=== PATIENT | female | born 1980 | race Caucasian/White ===

== ENCOUNTER → 2018-01-25 | Outpatient (CLI) | payer OTHER | LOC: M LRY 11:36 | DX: S99.911A Unspecified injury of right ankle, initial encounter (principal); S79.921A Unspecified injury of right thigh, initial encounter; S89.91XA Unspecified injury of right lower leg, initial encounter; X58.XXXA Exposure to other specified factors, initial encounter; Y92.89 Other specified places as the place of occurrence of the external cause; Y93.9 Activity, unspecified; Y99.9 Unspecified external cause status | CPT/HCPCS: 73502; G0463 ==

== ENCOUNTER → 2018-03-16 | Outpatient (CLI) | payer OTHER ==
[~2018-03-16] MED LIST: CONRAY-43 43% 50ML VIAL (Q9960) As Ordered
== END ==
LOC: M RADPRO 08:35
DX: M25.712 Osteophyte, left shoulder (principal); M25.512 Pain in left shoulder
CPT/HCPCS: 23350

== ENCOUNTER 2018-08-13 23:20 | Emergency (ER) | payer OTHER ==
[~2018-08-13] VITALS: Ht 162.6 cm; Wt 87.0 kg
[2018-08-13] MEDS ORDERED: GABA-843 PO (23:39)
[2018-08-13] MEDS ORDERED: MELO15TA28 (23:39)
[2018-08-13] MEDS ORDERED: ESCI20TA (23:39)
[2018-08-13] MEDS ORDERED: MAXA10TA15 (23:39)
[2018-08-13] MEDS ORDERED: PROP80CA (23:39)
[2018-08-13] MEDS ORDERED: SYNT175T2 (23:39)
[2018-08-13] MEDS ORDERED: DULO1CAP2 (23:39)
[2018-08-13] MEDS ORDERED: BUPR-321 (23:39)
[2018-08-13] MEDS ORDERED: TIZA4TAB4 (23:39)
[2018-08-14] MEDS ORDERED: NORCO, ANEXSIA 5/325MG TABLET (HYDROcodone/ACETAMINOPHEN) PO ONE (00:30)
[2018-08-14] MEDS ORDERED: KETOROLAC 60 MG/2 ML VIAL (J1885) IM ONE (01:15)
[2018-08-14 01:18] VITALS: BP 118/59
== END 2018-08-14 01:37 | disposition home or self-care (01) ==
LOC: M ED 23:20
DX: G89.29 Other chronic pain (principal); M25.512 Pain in left shoulder; G62.9 Polyneuropathy, unspecified; Z79.899 Other long term (current) drug therapy; Z88.5 Allergy status to narcotic agent; Z88.8 Allergy status to other drugs, medicaments and biological substances
CPT/HCPCS: 96372; 99283; J1885

== ENCOUNTER → 2018-09-10 | Outpatient (CLI) | payer OTHER ==
[~2018-09-10] MED LIST changes: +BUPR-321; -CONRAY-43 43% 50ML VIAL (Q9960) As Ordered; +DULO1CAP2; +ESCI20TA; +GABA-843 PO; +MAXA10TA15; +MELO15TA28; +PROP80CA; +SYNT175T2; +TIZA4TAB4
--- NOTE | 2018-09-13 08:17 | REP ---
CT cervical spine without contrast HISTORY: Radiculopathy COMPARISON: None There is no acute fracture or subluxation. Disc bulges are present at the C4-5 and C5-6 levels. There is minimal narrowing of the spinal canal. There is no other disc bulge or herniation. The neural foramina are patent. The intervertebral discs and vertebral bodies are normal in height. IMPRESSION: There is cervical spondylosis at the C4-5 and C5-6 levels. Electronically Signed by Jose E Blair MD 09/13/2018 08:08 A
--- NOTE | 2018-09-13 08:26 | REP ---
CT Lumbar Spine without contrast HISTORY: Radiculopathy COMPARISON: None There is no disc bulge or herniation at the L1-2 L2-3 and L5-L1 levels. The nerves exit the neural foramina without compression. A diffuse disc bulge is present at the L3-4 level. There is minimal compression of the thecal sac. The L3 nerves exit the neural foramina without compression. A diffuse disc bulge is present at the L4-5 level. There is minimal compression of the thecal sac. The L4 nerves exit the neural foramina without compression. The L4-5 intervertebral disc is decreased in height consistent with disc degeneration. There is no fracture or subluxation. IMPRESSION: Diffuse disc bulges at the L3-4 and L4-5 levels with minimal thecal sac compression. Electronically Signed by Jose E Blair MD 09/13/2018 08:18 A
== END ==
LOC: M RAD 17:23
PROVIDERS: ATTEND Family Medicine
DX: M50.221 Other cervical disc displacement at C4-C5 level (principal); M50.222 Other cervical disc displacement at C5-C6 level; M51.26 Other intervertebral disc displacement, lumbar region

== ENCOUNTER → 2018-09-30 | Outpatient (REF) | payer OTHER ==
[2018-09-30 17:48] LABS: BASO % 0.3 % (0.0-1.0); EOS # 0.4 10^3/uL (0.0-0.50); EOS % 4.4 % (0.0-3.0); HEMATOCRIT 37.9 % (36.0-47.0); HEMOGLOBIN 11.4 g/dl (12.0-15.5); LYMPH # 1.8 10^3/uL (1.5-4.5); MEAN CORPUSCULAR HEMOGLOBIN 22.4 pg (27.0-33.0); MEAN CORPUSCULAR HGB CONC 30.1 g/dl (32.0-36.5); MEAN CORPUSCULAR VOLUME 74.5 fl (80.0-96.0); MONO # 0.6 10^3/uL (0.0-0.8); MONO % 6.9 % (0.0-5.0); NEUTROPHILS # 5.2 10^3/uL (1.8-7.7); NEUTROPHILS % 64.8 % (36.0-66.0); PLATELET COUNT, AUTOMATED 307 10^3/uL (150-450); RED BLOOD COUNT 5.09 10^6/uL (4.00-5.40)
[2018-09-30 17:54] LABS: ALBUMIN 3.8 GM/DL (3.2-5.2); ALT/SGPT 43 U/L (12-78); BILIRUBIN,TOTAL 0.2 MG/DL (0.2-1.0); BLOOD UREA NITROGEN 9 MG/DL (7-18); CALCIUM LEVEL 9.4 MG/DL (8.5-10.1); CARBON DIOXIDE LEVEL 28 MEQ/L (21-32); CHLORIDE LEVEL 104 MEQ/L (98-107); CREATININE FOR GFR 0.56 MG/DL (0.55-1.30); GLOMERULAR FILTRATION RATE > 60.0 (>60); GLUCOSE, FASTING 115 MG/DL (70-100); POTASSIUM SERUM 4.5 MEQ/L (3.5-5.1); RHEUMATOID FACTOR QUANT < 10.0 IU/ML (<15.0); SODIUM LEVEL 138 MEQ/L (136-145); TOTAL PROTEIN 7.2 GM/DL (6.4-8.2)
[2018-09-30 18:03] LABS: TOTAL 25(OH) VITAMIN D 14.9 NG/ML (30.0-100.0); VITAMIN B12 LEVEL 548 PG/ML
[2018-09-30 18:04] LABS: FOLATE 9.8 NG/ML
[2018-09-30 19:26] LABS: ERYTHROCYTE SEDIMENTATION RATE 17 mm/hr (0-20)
[2018-10-06 00:08] LABS: AMITRIPTYLINE None Detected (Not Estab.); ANTI DOUBLE STRAND-DNA AB 9 IU/mL (0-9); ANTINUCLEAR ANTIBODIES DIRECT Positive (Negative); NORTRIPTYLINE None Detected (Not Estab.); SJOGREN'S ANTI SS-A <0.2 AI (0.0-0.9); SJOGREN'S ANTI SS-B <0.2 AI (0.0-0.9); SMITH ANTIBODIES <0.2 AI (0.0-0.9)
== END ==
LOC: M LABNEURO 11:17
PROVIDERS: ATTEND Psychiatry & Neurology Neurology
DX: R51 Headache (principal)
CPT/HCPCS: 36415; 80053; 80203; 82306; 82607; 82746; 85025; 85652; 86038; 86431; G0480

== ENCOUNTER → 2018-12-29 | Outpatient (CLI) | payer OTHER ==
[~2018-12-29] MED LIST changes: -DULO1CAP2; +DULO1CAP5
--- NOTE | 2018-12-29 12:14 | REP ---
Clinical: Increasing pain. Technique: Four views of the sacroiliac joints. Findings: Sacroiliac joints are symmetric and normal. Osseous structures are intact and normal. Surrounding soft tissues are unremarkable. Impression: Normal sacroiliac joints. Electronically Signed by Zacarias Le MD 12/29/2018 12:05 P
== END ==
LOC: M RAD 11:29
PROVIDERS: ATTEND Internal Medicine Rheumatology
DX: Z15.89 Genetic susceptibility to other disease (principal)
CPT/HCPCS: 72202; G0463

== ENCOUNTER → 2019-01-04 | Outpatient (CLI) | payer OTHER ==
[~2019-01-04] MED LIST changes: +ISOVUE-370 76% 100ML VIAL (Q9967) As Ordered ONE
--- NOTE | 2019-01-05 07:24 | REP ---
CT of the head without and with contrast Indication: Headaches. Comparison: None Technique: Axial CT of the head was performed pre contrast. Following the uneventful intravenous administration of 75 ml Isovue 370, axial CT of the head was performed with contrast. Findings: There is no visible soft tissue swelling or calvarial fracture. There is no evidence of acute intracranial hemorrhage or extra-axial fluid collection. Bush-white matter differentiation is maintained. There is no mass effect or midline shift. The basal cisterns are patent. There is no hydrocephalus. The visualized paranasal sinuses and mastoid air cells are clear. There is no abnormal enhancement. Impression: Unremarkable CT head without and with contrast. Electronically Signed by Mk Llamas MD 01/04/2019 03:35 P
== END ==
LOC: M RAD 14:39
PROVIDERS: ATTEND Psychiatry & Neurology Neurology
DX: R51 Headache (principal)